=== PATIENT | female | born 1975 | race Caucasian/White ===

== ENCOUNTER 2023-12-31 08:53 | Emergency (ER) | payer MEDICAID ==
--- NOTE | 2023-12-31 09:24 | ERPHSYRPT ---
- History of Present Illness Time Seen by Provider: 12/31/23 09:24 Source: patient, family Exam Limitations: no limitations Physician History: This is a 48-year-old female who presents to the emergency department with her significant other by private vehicle with a complaint of bilateral flank pain. Patient does not have a primary care provider. Originally, the patient went to the outpatient clinic. However, they felt the patient may need a CAT scan of the abdomen pelvis and was sent to us for further evaluation management. Patient states that she has had bilateral flank pain for several days. It got bad enough for her to be seen at the [facility] emergency department where she underwent a urinalysis which was negative for infection per her report. Patient was given a prescription for naproxen and sent home. She has had intermittent bilateral flank pain. It was worse last evening. It is slightly improved and came back again this morning. She states that she can barely move. However, upon arrival to the emergency department, she states that she does not have much pain at this time. She does have some radiation of her pain shooting into her bilateral lower quadrants. She has had no vomiting. She has had no diarrhea. Patient takes no medications chronically and she has no known drug allergies. She has never had this kind of medical issue in the past. She did not suffer any acute acute fall or trauma to her back. Patient has had a hysterectomy in the past. Patient states that she has no medical insurance and wants to decide what tests are run. She is refusing an intravenous line. Timing/Duration: worse (Since 12/27/2023) Method of Injury: other (No fall or acute injury) Quality: sharp, aching Severity of Pain-Max: moderate Severity of Pain-Current: none Modifying Factors: Improves With: movement Associated Symptoms: lower back pain, No urinary incontinence, No loss of bowel control, No light-headedness, No numbness in legs/feet, No sensory/motor loss, No tingling in legs/feet, No muscle spasms Previous symptoms: same symptoms as today, recently seen, recently treated Allergies/Adverse Reactions: No Known Drug Allergies Allergy (Verified 12/31/23 09:28) Travel Risk - International Travel Have you traveled outside of the country in past 3 weeks: No - Emerging Infectious Disease Are you exhibiting symptoms associated with any current EIDs: No - Review of Systems Constitutional: No Symptoms Eyes: No Symptoms Ears, Nose, & Throat: No Symptoms Respiratory: No Symptoms Cardiac: No Symptoms Abdominal/Gastrointestinal: No Symptoms Genitourinary Symptoms: Flank Pain (Bilateral) Musculoskeletal: No Symptoms Skin: No Symptoms Neurological: No Symptoms Psychological: No Symptoms Endocrine: No Symptoms Hematologic/Lymphatic: No Symptoms Immunological/Allergic: No Symptoms All Other Systems: Reviewed and Negative - Past Medical History Pertinent Past Medical History: No - Past Surgical History Female Surgical History: Hysterectomy - Social History Smoking Status: Current every day smoker - Nursing Vital Signs Nursing Vital Signs: Initial Vital Signs Temperature 97.2 F 12/31/23 09:22 Pulse Rate 79 12/31/23 09:22 Respiratory Rate 20 12/31/23 09:22 Blood Pressure 135/76 12/31/23 09:22 O2 Sat by Pulse Oximetry 99 12/31/23 09:22 Pain Scale Pain Intensity 4 - Physical Exam General Appearance: no apparent distress, alert, anxiety Eye Exam: PERRL/EOMI, eyes nml inspection Ears, Nose, Throat Exam: normal ENT inspection, moist mucous membranes Neck Exam: normal inspection, non-tender, supple, full range of motion Respiratory Exam: normal breath sounds, lungs clear, airway intact, No chest tenderness, No respiratory distress Cardiovascular Exam: regular rate/rhythm, normal heart sounds, normal peripheral pulses Gastrointestinal Exam: soft, normal bowel sounds, No tenderness Pelvic Exam: not done Rectal Exam: not done Back Exam: normal inspection, normal range of motion, CVA tenderness (Bilateral), No vertebral tenderness Extremity Exam: normal inspection, normal range of motion, pelvis stable Neurologic Exam: alert, oriented x 3, cooperative, bog cutter II-XII nml as tested, normal mood/affect, nml cerebellar function, nml station & gait, sensation nml Skin Exam: normal color, warm, dry Lymphatic Exam: No adenopathy SpO2 Interpretation: normal O2 Delivery: Room Air - Course Nursing assessment & vital signs reviewed: Yes Ordered Tests: Active Orders 24 hr Category Date Time Status ABDOMEN AND PELVIS W/0 CONTRAS [CT] Stat Exams 12/31/23 10:04 Completed AMYLASE Stat Lab 12/31/23 10:30 Completed CBC W DIFF Stat Lab 12/31/23 10:04 Completed CMP Stat Lab 12/31/23 10:30 Completed LIPASE Stat Lab 12/31/23 10:30 Completed UA W/RFX UR CULTURE Stat Lab 12/31/23 10:05 Completed Lab/Rad Data: Laboratory Result Diagrams 12/31/23 10:04 12/31/23 10:30 Laboratory Results 12/31/23 12/31/23 12/31/23 Range/Units 10:30 10:05 10:04 WBC 9.7 (4.0-10.5) x10^3/uL RBC 4.36 (4.1-5.4) x10^6/uL Hgb 14.3 (12.0-16.0) g/dL Hct 42.1 (35-47) % MCV 96.6 (78-100) fL MCH 32.8 H (26-32) pg MCHC 34.0 (32-36) g/dL RDW 11.9 (11.5-14.0) % Plt Count 232 (150-450) x10^3/uL MPV 9.5 (7.5-11.0) fL Gran % 76.3 H (36.0-66.0) % Immature Gran % (Auto) 0.4 (0.00-0.4) % Nucleat RBC Rel Count 0.0 (0.00-0.1) % Eos # (Auto) 0.15 (0-0.5) x10^3/uL Immature Gran # (Auto) 0.04 H (0.00-0.03) x10^3u/L Absolute Lymphs (auto) 1.62 (1.0-4.6) x10^3/uL Absolute Monos (auto) 0.45 (0.0-1.3) x10^3/uL Absolute Nucleated RBC 0.00 (0.00-0.01) x10^3u/L Lymphocytes % 16.7 L (24.0-44.0) % Monocytes % 4.6 (0.0-12.0) % Eosinophils % 1.5 (0.00-5.0) % Basophils % 0.5 (0.0-0.4) % Absolute Granulocytes 7.40 H (1.4-6.9) x10^3/uL Basophils # 0.05 (0-0.4) x10^3/uL Sodium 140 (135-145) mmol/L Potassium 3.7 (3.5-5.1) mmol/L Chloride 108 H (98-107) mmol/L Carbon Dioxide 26 (22-30) mmol/L Anion Gap 9.4 (5-15) MEQ/L BUN 15 (7-17) mg/dL Creatinine 0.93 (0.52-1.04) mg/dL Estimated GFR 74.9 ML/MIN Glucose 113 H (74-106) mg/dL Calcium 9.1 (8.4-10.2) mg/dL Total Bilirubin 0.80 (0.2-1.3) mg/dL AST 27 (14-36) U/L ALT 26 (0-35) U/L Alkaline Phosphatase 67 (38-126) U/L Serum Total Protein 6.7 (6.3-8.2) g/dL Albumin 3.9 (3.5-5.0) g/dL Amylase 105 (30-110) U/L Lipase 232 (23-300) U/L Urine Color Yellow (Yellow) Urine Appearance Clear (Clear) Urine pH 6.0 (4.6-8.0) Ur Specific [place] 1.010 (1.005-1.030) Urine Protein Negative (Negative) Urine Glucose (UA) Negative (Negative) mg/dL Urine Ketones Negative (Negative) Urine Blood Negative (Negative) Urine Nitrite Negative (Negative) Urine Bilirubin Negative (Negative) Urine Urobilinogen 0.2 (0.2) mg/dL Ur Leukocyte Esterase Negative (Negative) U Hyaline Cast (Auto) NONE SEEN (0-2) /LPF Urine Microscopic RBC 0-2 (0-5) /HPF Urine Microscopic WBC 0-2 (0-5) /HPF Ur Epithelial Cells None Seen (None Seen) /HPF Urine Bacteria None Seen (None Seen) /HPF Urine Culture Reflexed NO (NO) - Progress Progress: unchanged, re-examined Progress Note: 12/31/23 11:12 My medical decision making and the assignment of moderate complexity to this melvin dietz's medical issue today, is based on review of the patient's past medical history, review of patient's medication list, review patient drug allergy list, history present illness, physical findings on examination and patient's request not to have an intravenous line placement. She does agree to blood work and urinalysis as well as CT scan of the abdomen pelvis without contrast. She also states that she does not want or need any pain medicine of any kind at this time. Differential diagnosis muscle skeletal back pain, kidney infection, ureterolithiasis, pancreatitis 12/31/23 11:50 I interpreted the patient's laboratory data results. The results of today's laboratory studies do not show any acute or emergent medical issue. The CT scan of the abdomen pelvis without contrast was interpreted by the radiologist and I reviewed the impression. The impression reads 2 nonobstructing left renal calculi. There is mild diffuse fecal stasis. There is a small hiatal hernia. There is lumbosacral junction disc disease present. I discussed these findings with the patient. Counseled pt/family regarding: lab results, diagnosis, need for follow-up, rad results Medical Desision Making - Independent Historian Additional History obtained from: Spouse - Diagnostic Testing Diagnostic test were ordered, analyzed, and reviewed by me: Yes Radiological Interpretation: Reviewed by me, Teleradiologist Report - Risk of complications The pt has a mod risk of morbidity or mortality based on: Need for prescription drug management - Departure Departure Disposition: Home Clinical Impression: Bilateral flank pain, Lumbosacral disc disease Condition: Stable Critical Care Time: No Referrals: DOCTOR,NO FAMILY [Primary Care Provider] - Follow up/PCP as directed Additional Instructions: Drink plenty of fluids. Take your medications as prescribed. Stop your naproxen. Follow-up with the primary care provider for further evaluation man agement. Prescriptions: Prednisone 10 mg [Deltasone 10 mg] 10 mg PO TID #12 tablet Orphenadrine Citrate 100 mg [Norflex 100 MG Tablet] 100 mg PO BID #10 tab
[2023-12-31 09:27] VITALS: RESP 20; TEMP 97.2
[2023-12-31 10:05] VITALS: BP 99/72; PULSE 82; O2SAT 93
[2023-12-31 10:24] LABS: Appearance Clear (Clear); Bacteria None Seen /HPF (None Seen); Bilirubin Negative (Negative); Blood Negative (Negative); Epithelial Cells None Seen /HPF (None Seen); Glucose, Urine Negative (Negative); Hyaline Casts NONE SEEN /LPF (0-2); Ketones Negative (Negative); Leukocyte Esterase Negative (Negative); Nitrite Negative (Negative); Protein,Urine Dip Negative (Negative); RBC 0-2 /HPF (0-5); Urobilinogen 0.2 mg/dL (0.2); WBC 0-2 /HPF (0-5)
[2023-12-31 10:28] LABS: ADD URINE CULTURE? NO (NO)
[2023-12-31 10:31] LABS: BASOPHIL % 0.5 % (0.0-0.4); Basophil (Absolute #) 0.05 x10^3/uL (0-0.4); Eosinophil % 1.5 % (0.00-5.0); Eosinophil (Absolute #) 0.15 x10^3/uL (0-0.5); Hematocrit 42.1 % (35-47); Hemoglobin 14.3 g/dL (12.0-16.0); IMMATURE GRAN # 0.04 x10^3u/L (0.00-0.03); IMMATURE GRAN % 0.4 % (0.00-0.4); Lymphocyte (Absolute #) 1.62 x10^3/uL (1.0-4.6); Lymphocytes % 16.7 % (24.0-44.0); Mean Cell Volume 96.6 fL (78-100); Mean Corpuscular Hemoglobin 32.8 pg (26-32); Mean Platelet Volume 9.5 fL (7.5-11.0); Monocyte (Absolute #) 0.45 x10^3/uL (0.0-1.3); Monocytes % 4.6 % (0.0-12.0); Neutrophil % 76.3 % (36.0-66.0); Platelet Count 232 x10^3/uL (150-450); Red Blood Count 4.36 x10^6/uL (4.1-5.4); Red Cell Distribution Width 11.9 % (11.5-14.0); White Blood Count 9.7 x10^3/uL (4.0-10.5)
[2023-12-31 10:44] LABS: ALBUMIN 3.9 g/dL (3.5-5.0); ANION GAP 9.4 MEQ/L (5-15); BILIRUBIN,TOTAL 0.8 mg/dL (0.2-1.3); Calcium 9.1 mg/dL (8.4-10.2); Creatinine 1 0.93 mg/dL (0.52-1.04); EST GLOMERULAR FILTRATION RATE 74.9 ML/MIN; Potassium 3.7 mmol/L (3.5-5.1); Total Protein 6.7 g/dL (6.3-8.2)
--- NOTE | 2023-12-31 11:45 | XRAY ---
Indication: Bilateral flank pain. Multiple contiguous axial images obtained through the abdomen and pelvis without contrast using renal stone protocol. Comparison: None Lung bases demonstrate mild right lower lobe subsegmental atelectasis/scarring. No infiltrate or effusion. Heart not enlarged. Small hiatal hernia. Incompletely visualized bilateral breast implants. Left kidney demonstrates 2 nonobstructing punctate calculi. No renal calculus or evidence for obstructive uropathy on the right. Noncontrasted stomach and bowel loops appear nonobstructed with normal appendix.: Demonstrates mild diffuse colonic fecal debris with scattered medications/bismuth throughout. Previous hysterectomy. No free fluid/air. Remaining liver, gallbladder, pancreas, spleen, adrenal glands, kidneys, ureters, bladder and aorta are unremarkable for noncontrast exam. Osseous structures intact with moderate lumbosacral junction degenerative disc disease. Impression: 1. 2 nonobstructing left renal punctate calculi. 2. Mild diffuse fecal stasis, small hiatal hernia, and lumbosacral junction degenerative disc disease. 3. Remaining CT abdomen/pelvis without contrast exam is negative.
== END 2023-12-31 12:07 | disposition home or self-care (01) ==
LOC: ED 08:53
DX: R10.9 Unspecified abdominal pain (principal); M51.37 Other intervertebral disc degeneration, lumbosacral region; Z79.52 Long term (current) use of systemic steroids; Z72.0 Tobacco use
CPT/HCPCS: 36415; 74176; 80053; 81001; 82150; 83690; 85025; 99283